=== PATIENT | male | born 1985 | race Caucasian/White ===

== ENCOUNTER 2018-03-10 20:39 | Emergency (ER) | payer SELFPAY ==
[~2018-03-10] VITALS: Ht 185.4 cm; Wt 81.8 kg
[2018-03-10 21:16] VITALS: Ht 185.4 cm; Wt 81.8 kg
[2018-03-10 21:55] LABS: BASOPHILS 0.2 % (0-2); EOSINOPHILS 1.2 % (0-7); HEMATOCRIT 54.1 % (42.0-54.0); HEMOGLOBIN 18.9 g/dL (13.5-17.5); IMMATURE GRANULOCYTES 0.3 % (0-5); LYMPHOCYTES 12.5 % (15-50); MCH 32.4 pg (26.0-34.0); MCHC 34.9 g/dL (31.0-37.0); MCV 92.8 fL (80.0-100.0); MEAN PLATELET VOLUME 11.2 fL (7.4-10.4); MONOCYTES 7.7 % (2-11); NEUTROPHILS 78.1 % (40-80); PLATELET COUNT 293 10x3/uL (130-400); RBC 5.83 10x6/uL (4.20-6.10); RDW 13.5 % (11.5-14.5); WBC 17.5 10x3/uL (4.8-10.8)
[2018-03-10 22:06] LABS: ALBUMIN 4.2 g/dL (3.4-5.0); ALKALINE PHOSPHATASE 56 U/L (46-116); ALT (SGPT) 33 U/L (10-68); BILIRUBIN - TOTAL 0.72 mg/dL (0.2-1.3); CALC OSMOLALITY 288 mosm/kg (275-300); CALCIUM 8.9 mg/dL (8.5-10.1); CARBON DIOXIDE 28.7 mmol/L (21.0-32.0); CHLORIDE - SERUM 105 mmol/L (98-107); CREATININE - SERUM 1.1 mg/dL (0.6-1.3); GLUCOSE 111 mg/dL (74-106); POTASSIUM - SERUM 4.1 mmol/L (3.5-5.1); PROTEIN - SERUM 7.3 g/dL (6.4-8.2); SODIUM 144 mmol/L (136-145); UREA NITROGEN 14 mg/dL (7-18); eGFR NON AFRICAN AMERICAN 83 mL/min (90-120)
[2018-03-10 22:09] LABS: APPEARANCE CLEAR (CLEAR); BILIRUBIN NEGATIVE (NEGATIVE); COLOR YELLOW (YELLOW); GLUCOSE NEGATIVE (NEGATIVE); KETONE NEGATIVE (NEGATIVE); NITRITE NEGATIVE (NEGATIVE); PROTEIN TRACE mg/dL (NEGATIVE); UROBILINOGEN NORMAL (NORMAL)
[2018-03-10 22:11] LABS: BACTERIA MODERATE /hpf (NONE SEEN); MUCUS <1+ /lpf (NONE SEEN); RED CELLS - URINE OCC /hpf (0-5); WHITE CELLS - URINE 0-5 /hpf (0-5)
[2018-03-10 22:17] LABS: AMYLASE - SERUM 57 U/L (25-115); CKMB 0.8 U/L (0.0-3.6); LIPASE 137 U/L (73-393); TROPONIN-I < 0.017 ng/mL (0.000-0.060)
[2018-03-10 22:54] LABS: APTT 29.3 SECONDS (22.8-39.4); INR 1.06 (0.85-1.17); PROTIME 13.3 SECONDS (11.6-15.0)
[2018-03-10 23:03] LABS: D-DIMER-QUANTITATIVE 6.81 ug/mLFEU (0.20-0.54)
[2018-03-10] MEDS ORDERED: LOMOTIL 2.5-0.1 EAC1 PO (23:17)
[2018-03-10] MEDS ORDERED: CIPRO500 MG PO (23:17)
[2018-03-10] MEDS ORDERED: FLAGYL500 MG PO (23:17)
[2018-03-10] MEDS ORDERED: PHENERGAN25 M1 PO (23:17)
[2018-03-10 23:36] VITALS: BP 117/76
== END 2018-03-10 23:39 | disposition home or self-care (01) ==
LOC: D.ER 20:39
PROVIDERS: Emergency Medicine
DX: K52.9 Noninfective gastroenteritis and colitis, unspecified (principal)

== ENCOUNTER 2018-07-03 15:51 | Emergency (ER) | payer OTHER ==
[~2018-07-03] VITALS: Ht 185.4 cm; Wt 70.5 kg
[~2018-07-03 15:51] MED LIST: CIPRO500 MG PO; FLAGYL500 MG PO; LOMOTIL 2.5-0.1 EAC1 PO; PHENERGAN25 M1 PO
[2018-07-03 16:09] VITALS: Ht 185.4 cm; Wt 70.5 kg
[2018-07-03] MEDS ORDERED: CELEXA20 MG PO (19:03)
[2018-07-03 19:17] VITALS: BP 131/84
== END 2018-07-03 19:24 | disposition home or self-care (01) ==
LOC: D.ER 15:51
DX: F41.9 Anxiety disorder, unspecified (principal)